=== PATIENT | male | born 1995 | race Two or more races ===

== ENCOUNTER 2024-11-01 09:22 | Inpatient (IN) | payer BC ==
[2024-10-30 08:19] LABS: Urine Protein, UAD Negative (Negative)
[2024-10-30 08:27] LABS: Hematocrit 42.8 % (41.0-53.0); Hemoglobin 14.6 g/dL (13.5-17.5); Mean Corpuscular Hemoglobin 29.5 pg (28.0-32.0); Mean Corpuscular Volume 86.4 fL (80.0-100.0); Nucleated Red Blood Cells % 0.0 %
[2024-10-30 08:46] LABS: INR 1.04 (0.9-1.15); Partial Thromboplastin Time 30.1 SEC (24.5-34.5); Prothrombin Time 11.0 sec (9.3-11.8)
[2024-10-30 08:58] LABS: Alanine Aminotransferase 20 U/L (7-40); Albumin 4.8 g/dL (3.2-4.8); Alkaline Phosphatase 67 U/L (46-116); Anion Gap 7 (5-15); BUN/Creatinine Ratio 23.6 (10.0-20.0); Bilirubin, Total 0.5 mg/dL (0.2-1.0); Blood Urea Nitrogen 21 mg/dL (9-23); Carbon Dioxide 28 mmol/L (20-31); Chloride 106 mmol/L (98-107); Glucose 91 mg/dL (74-106); Potassium 4.1 mmol/L (3.5-5.1); Sodium 141 mmol/L (136-145); Total Protein 7.6 g/dL (5.7-8.2)
[2024-10-30 09:08] LABS: Calcium 10.5 mg/dL (8.7-10.4)
[~2024-11-01] VITALS: Ht 177.8 cm; Wt 73.8 kg
[~2024-11-01 09:22] MED LIST: LEVO137T3 PO; MULT-1018 OR; OMEG1CAP PO; [UNRECOGNIZED DRUG - CODE] PO
[2024-11-01] MEDS ORDERED: ROCURONIUM 10MG/ML 10ML VIAL IV ONE (11:19)
[2024-11-01] MEDS ORDERED: SUGAMMADEX 200mg/2ml Vial (100MG/ML) IV ONE (11:19)
[2024-11-01] MEDS ORDERED: GLYCOPYRROLATE 0.2 MG/ML 1ML VIAL ONE (11:19)
[2024-11-01] MEDS: ceFAZolin 2 GM/D5W50ml 50 ML IV ONE (11:19)
[2024-11-01] MEDS ORDERED: PROPOFOL 10 MG/ML 20 ML IV ONE (11:19)
[2024-11-01] MEDS ORDERED: ONDANSETRON HCL 4 MG/2 ML VIAL ONE (11:19)
[2024-11-01] MEDS ORDERED: MIDAZOLAM HCL 2MG/2ML 2ml VIAL (1mg/ml) ONE (11:19)
[2024-11-01] MEDS ORDERED: HYDROmorphone HCL 2 MG/ML VL/or syr ONE (11:19)
[2024-11-01] MEDS ORDERED: LIDOCAINE 2% (LOCAL ANESTH.) PF 5ml SDV ONE (11:19)
[2024-11-01] MEDS ORDERED: fentaNYL CITRATE 100 MCG/2 ML VL ONE (11:19)
[2024-11-01] MEDS: LIDOCAINE W/ EPINEPHRINE 1% 20ML VIAL ONE (11:58)
[2024-11-01] MEDS: BUPIVACAINE 0.5% P/F INJ 10 ML VIAL ONE (11:58)
[2024-11-01] MEDS ORDERED: D5W/SOD CHL 0.45%/KCL 20MEQ 1,000 ML IV SCH (12:45)
[2024-11-01] MEDS ORDERED: ONDANSETRON HCL 4 MG/2 ML VIAL IV PRN (12:45)
[2024-11-01] MEDS ORDERED: HYDROmorphone HCL 2 MG/ML VL/or syr IV PRN (12:45)
[2024-11-01 12:56] VITALS: RESP 16; O2SAT 98
--- NOTE | 2024-11-01 13:01 | DVHOP ---
DATE OF SURGERY: 11/01/2024 PREOPERATIVE DIAGNOSES: * Cholelithiasis. * Chronic cholecystitis. * Gallbladder polyps. POSTOPERATIVE DIAGNOSES: * Cholelithiasis. * Chronic cholecystitis. * Gallbladder polyps. SURGEON: Jayme Kee MD [employer] SUPERVISOR: Kirill Tillman NP ANESTHESIA: General endotracheal. ANESTHESIOLOGIST: Dr. Villatoro. PROCEDURES: * Laparoscopy. * Laparoscopic cholecystectomy. DESCRIPTION OF PROCEDURE: Under general endotracheal anesthesia with the patient's skin prepped and draped, a supraumbilical incision was made and Veress needle inserted by the hanging drop technique in order to establish pneumoperitoneum to 15 mmHg pressure by insufflation with carbon dioxide. With the abdomen fully distended, the needle was removed and replaced with a 5 mm trocar port through which a 0-degree viewing laparoscope was inserted and under direct vision, a 5 mm port inserted through the right anterior axillary line at the level of the umbilicus and a 10 mm port inserted through the subxiphoid midline skin. Instrumentation was introduced and laparoscopy was performed. It revealed no obvious unexpected pathology. The gallbladder, however, was covered with a very tenacious veil of fibrous tissue and was obscured from vision. This fibrous tissue had to be stripped meticulously by blunt dissection, at which point the gallbladder wall became visible. The gallbladder was placed on tension. The cystic duct and cystic artery were identified, circumferentially dissected, skeletonized, and traced into the hepatocystic triangle just to minimize the potential for inadvertent injury to the common bile duct. Subsequently, the cystic duct and cystic artery were divided between metallic clips applied close to the gallbladder, again trying to avoid injury to the common bile duct. Following division of the cystic duct and cystic artery, the gallbladder was resected from its liver bed by electrocautery and traction. The fully mobilized gallbladder was removed by placement in a specimen extraction bag introduced through the 10 mm port site and withdrawn through this site. The right upper quadrant was thoroughly irrigated. Irrigant was aspirated. Hemostasis was meticulously inspected and found to be complete. At the termination of the procedure, there was no evidence of bleeding from either the gallbladder bed or from the port sites. Instrumentation was withdrawn. Pneumoperitoneum was evacuated. The fascia defect was closed using 0 Vicryl. The wound was approximated using Monocryl sutures, Dermabond glue, and Steri-Strips. The patient remained stable throughout the procedure, left the operating room following an accurate needle and sponge count. His was thoroughly informed by phone at [phone]. MD MILLIE Calix/GINNY TID: [id number] RECEIPT: [id number]
[2024-11-01] MEDS: ACETAMINOPHEN IV 100 ML IV ONE (13:27)
[2024-11-01] MEDS ORDERED: ACETAMINOPHEN IV 1000 MG/100ML (10MG/ML) IV PRN (13:30)
[2024-11-01] MEDS: D5W/SOD CHL 0.45%/KCL 20MEQ 1,000 ML IV SCH (14:12)
--- NOTE | 2024-11-01 14:41 | DVHHP2 ---
Review of Systems Allergies: Coded Allergies: NSAIDs (Unverified Allergy, Unknown, 10/29/24) Medications Current Medications Medications Dose Ordered Sig/Lisa Route Start Time Stop Time Status Last Admin Dose Admin Pantoprazole Sodium 40 mg DAILY IV 11/02/24 10:00 Ondansetron HCl 4 mg Q4HPRN PRN IV 11/01/24 12:45 Hydromorphone HCl 0.5 mg Q2HPRN PRN IV 11/01/24 12:45 Cefazolin Sodium 50 ml @ 100 mls/hr Q8HR IV 11/01/24 14:00 Metronidazole 100 ml @ 100 mls/hr Q8HR IV 11/01/24 14:00 11/01/24 14:11 100 MLS/HR Potassium Chloride/Dextrose/ Sod Cl 1,000 ml @ 120 mls/hr Q8H20M IV 11/01/24 20:00 11/01/24 14:12 120 MLS/HR Exam Vital Signs Vital Signs Date Time Temp Pulse Resp B/P (MAP) Pulse Ox O2 Delivery O2 Flow Rate FiO2 11/01/24 14:10 95 17 134/53 (80) 98 11/01/24 13:07 Room Air 98 11/01/24 12:56 97.8 97.8 11/01/24 12:56 10.0 Labs/Xrays Labs Test 10/30/24 07:55 Range/Units White Blood Count 6.0 4.4-10.8 10^3/uL Red Blood Count 4.95 4.5-5.90 10^6/uL Hemoglobin 14.6 13.5-17.5 g/dL Hematocrit 42.8 41.0-53.0 % Mean Corpuscular Volume 86.4 80.0-100.0 fL Mean Corpuscular Hemoglobin 29.5 28.0-32.0 pg Mean Corpuscular Hemoglobin Concent 34.2 32.0-36.0 g/dL Red Cell Distribution Width 13.3 11.8-14.3 % Platelet Count 213 140-450 10^3/uL Mean Platelet Volume 8.0 6.9-10.8 fL Neutrophils (%) (Auto) 47.4 37.0-80.0 % Lymphocytes (%) (Auto) 36.2 10.0-50.0 % Monocytes (%) (Auto) 12.2 H 0.0-12.0 % Eosinophils (%) (Auto) 3.0 0.0-7.0 % Basophils (%) (Auto) 1.2 0.0-2.0 % Neutrophils # (Auto) 2.9 1.6-8.6 10 ^3/uL Lymphocytes # (Auto) 2.2 0.4-5.4 10 ^3/uL Monocytes # (Auto) 0.7 0-1.3 10 ^3/uL Eosinophils # (Auto) 0.2 0-0.8 10 ^3/uL Basophils # (Auto) 0.1 0-0.2 10 ^3/uL Nucleated Red Blood Cells 0.0 % Prothrombin Time 11.0 9.3-11.8 sec Prothrombin Time INR 1.04 0.9-1.15 Activated Partial Thromboplast Time 30.1 24.5-34.5 SEC Urine Color Light-yellow Yellow Urine Clarity Clear Clear Urine pH 5.5 5.0-9.0 Urine Specific [place] 1.016 1.001-1.035 Urine Protein Negative Negative Urine Ketones Negative Negative Urine Blood Negative Negative /uL Urine Nitrite Negative Negative Urine Bilirubin Negative Negative Urine Urobilinogen Normal Negative mg/dL Urine Leukocyte Esterase Negative Negative /uL Urine RBC 1 0 - 3 /hpf Urine Microscopic WBC < 1 0-3 /HPF Urine Squamous Epithelial Cells None seen <5 /hpf Urine Bacteria None seen None Seen /hpf Urine Glucose Normal Normal mg/dL Sodium Level 141 136-145 mmol/L Potassium Level 4.1 3.5-5.1 mmol/L Chloride Level 106 98-107 mmol/L Carbon Dioxide Level 28 20-31 mmol/L Anion Gap 7 5-15 Blood Urea Nitrogen 21 9-23 mg/dL Creatinine 0.89 0.700-1.30 mg/dL Glomerular Filtration Rate Calc 118 >90 mL/min BUN/Creatinine Ratio 23.6 H 10.0-20.0 Serum Glucose 91 74-106 mg/dL Calcium Level 10.5 H 8.7-10.4 mg/dL Total Bilirubin 0.5 0.2-1.0 mg/dL Aspartate Amino Transferase (AST) 23 13-40 U/L Alanine Aminotransferase (ALT) 20 7-40 U/L Alkaline Phosphatase 67 46-116 U/L Total Protein 7.6 5.7-8.2 g/dL Albumin 4.8 3.2-4.8 g/dL SEPSIS Sepsis Screen Physician Orders To Pacu For Recovery (11/01/24 12:37) Oxygen Via Cool Mist Mask (11/01/24 12:37) Incentive Spirometry Q 1hr (11/01/24 12:37) Abdominal Binder (11/01/24 12:37) Sequential Compression Device (11/01/24 12:37) Clear Liq Diet (11/01/24 Lunch) Bilirubin, Total (11/02/24 04:00) Page Hospitalist For Admission (11/01/24 12:37) Pantoprazole (Protonix) (11/02/24 10:00) Ondansetron Hcl (Zofran) (11/01/24 12:45) Hydromorphone Injection (Dilaudid Inject (11/01/24 12:45) Cefazolin 1gm/50ml (Ancef) (11/01/24 14:00) Metronidazole 500mg/100ml (Flagyl 500mg/ (11/01/24 14:00) Ambulate Every 4hours Q4H (11/01/24 12:37) D5w/Sod Chl 0.45%/Kcl 20meq (11/01/24 20:00) Admit (11/01/24 14:38) Acetaminophen/Codeine Tablet (Tylenol W/ (11/01/24 14:45) Complete Blood Count (11/02/24 06:00) Comprehensive Metabolic Panel (11/02/24 06:00) Vital Signs Date Time Temp Pulse Resp B/P (MAP) Pulse Ox O2 Delivery O2 Flow Rate FiO2 11/01/24 14:10 95 17 134/53 (80) 98 11/01/24 13:40 102 19 132/64 (86) 98 11/01/24 13:25 105 21 123/63 (83) 100 11/01/24 13:10 95 20 130/68 (88) 99 11/01/24 13:07 Room Air 98 11/01/24 13:05 115 15 140/81 (100) 98 11/01/24 13:00 103 14 127/80 (96) 99 11/01/24 12:56 97.8 108 16 137/81 (99) 98 97.8 11/01/24 12:56 16 98 Mask 10.0 11/01/24 12:56 Mask 10.0 98 11/01/24 09:44 97.7 71 20 112/71 (45) 94 97.7 Medications Medications Dose Ordered Sig/Lisa Route Start Time Stop Time Status Last Admin Dose Admin Acetaminophen 100 ml @ ud STK-MED ONCE IV 11/01/24 13:09 11/01/24 13:08 DC 11/01/24 13:27 100 MLS/HR Bupivacaine HCl 20 ml STK-MED ONCE .ROUTE 11/01/24 10:13 11/01/24 10:12 DC 11/01/24 11:58 6 ML Cefazolin Sodium/ Dextrose 50 ml @ ud STK-MED ONCE IV 11/01/24 09:45 11/01/24 09:43 DC 11/01/24 11:19 Lidocaine/ Epinephrine 20 ml STK-MED ONCE .ROUTE 11/01/24 10:14 11/01/24 10:12 DC 11/01/24 11:58 6 ML Metronidazole 100 ml @ 100 mls/hr Q8HR IV 11/01/24 14:00 11/01/24 14:11 100 MLS/HR Potassium Chloride/Dextrose/ Sod Cl 1,000 ml @ 120 mls/hr Q8H20M IV 11/01/24 20:00 11/01/24 14:12 120 MLS/HR Assessment/Plan Assessment/Plan see dictated note Plan discussed with: Patient My Orders Orders - LUCINDA HARRIS MD Procedure Category Date Status Time Admit ADMIT 11/01/24 Verified 14:38 Acetaminophen/Codeine PHA 11/01/24 Verified Tablet (Tylenol W/ 14:45 Complete Blood Count LAB 11/02/24 Verified 06:00 Comprehensive LAB 11/02/24 Verified Metabolic Panel 06:00 Date of Service: Nov 01, 2024 Billing Provider: LUCINDA HARRIS MD Common Visit Codes: [id number] INP/OBS CARE (HIGH) LUCINDA HARRIS MD Nov 01, 2024 14:41
[2024-11-01] MEDS ORDERED: ACETAMINOPHEN/CODEINE#3 (300/30mg) TAB PO PRN (14:45)
--- NOTE | 2024-11-01 15:13 | DVHHP ---
ADMIT DATE: 11/01/2024 HISTORY OF PRESENT ILLNESS: The patient is a 29-year-old gentleman who was admitted after he underwent laparoscopic cholecystectomy for gallbladder polyp that has been increasing in size. The patient at this time denies any significant pain. No chest pain, no shortness of breath, no nausea or vomiting. REVIEW OF SYSTEMS: Review of rest of the systems otherwise currently negative. PAST MEDICAL HISTORY: He has a history of hypothyroidism. MEDICATIONS: He takes levothyroxine 135 mcg daily. ALLERGIES: NONSTEROIDALS. SOCIAL HISTORY: Denies smoking or alcohol. FAMILY HISTORY: Negative. PHYSICAL EXAMINATION: GENERAL: The patient is awake and alert. VITAL SIGNS: Temperature of 97.8, pulse of 95 per minute, blood pressure 130/68. SHEENT: Unremarkable. NECK: No JVD. No pedal edema. LUNGS: Equal bilaterally. No added sounds. CARDIOVASCULAR: S1 and S2 are regular without murmurs. ABDOMEN: Soft. There is no organomegaly. Bowel sounds are hypoactive. NEUROLOGIC: Nonfocal. MUSCULOSKELETAL: Normal. ASSESSMENT AND PLAN: * Hypothyroidism, for which he will continue on levothyroxine. * Status post laparoscopic cholecystectomy for gallbladder polyp for which he will be placed on IV fluids along with pain medications. MD JENNIFER Hartman/EKT/LUCIO TID: [id number] RECEIPT: [id number]
--- NOTE | 2024-11-01 15:31 | DVHPN2 ---
Progress Note Date Seen: Nov 01, 2024 Medical Necessity Reason Pt with a Central, PICC or Fol: No Objective vital signs Vital Sign Date Time Temp Pulse Resp B/P (MAP) Pulse Ox O2 Delivery O2 Flow Rate FiO2 11/01/24 14:10 95 17 134/53 (80) 98 11/01/24 13:07 Room Air 98 11/01/24 12:56 97.8 97.8 11/01/24 12:56 10.0 medications Current Medications Medications Dose Ordered Sig/Lisa Route Start Time Stop Time Status Last Admin Dose Admin Pantoprazole Sodium 40 mg DAILY IV 11/02/24 10:00 Ondansetron HCl 4 mg Q4HPRN PRN IV 11/01/24 12:45 Hydromorphone HCl 0.5 mg Q2HPRN PRN IV 11/01/24 12:45 Cefazolin Sodium 50 ml @ 100 mls/hr Q8HR IV 11/01/24 14:00 Metronidazole 100 ml @ 100 mls/hr Q8HR IV 11/01/24 14:00 11/01/24 14:11 100 MLS/HR Potassium Chloride/Dextrose/ Sod Cl 1,000 ml @ 120 mls/hr Q8H20M IV 11/01/24 20:00 11/01/24 14:12 120 MLS/HR Acetaminophen/ Codeine Phosphate 1 tab Q4HP PRN PO 11/01/24 14:45 UNV Levothyroxine Sodium 137 mcg QAM@0600 PO 11/02/24 06:00 UNV laboratory and microbiology Laboratory Tests 10/30/24 07:55 Test 10/30/24 07:55 Range/Units Serum Glucose 91 74-106 mg/dL Problem List/Assessment/Plan Problem List/Assessment/Plan 11/01/24patient and his in recovery room, I explained the operation details that his gallbladder was affected by multiple dense adhesions and that most likely from the appearance his gallbladder was a source symptoms. Also explained that there was an enlarged lymph node adjacent to the cystic artery(triangle of [place] lymph node) which we removed for biopsy but which most likely si a reactive node. Plan discussed with: Patient, Spouse MONICA HILLMAN MD Nov 01, 2024 15:31
[2024-11-01 15:52] VITALS: PULSE 98; RESP 18; O2SAT 100
[2024-11-01 16:40] VITALS: BP 106/60; PULSE 100; RESP 18; TEMP 98.8; O2SAT 98
[2024-11-01] MEDS: ceFAZolin 1GM/50ML 50 ML IV SCH (16:49)
[2024-11-01] MEDS: diphenhdrAMINE HCL 25 MG CAP PO PRN (17:28)
[2024-11-01 20:00] VITALS: PULSE 78; RESP 17; O2SAT 99
[2024-11-01 21:00] VITALS: BP 108/64; PULSE 78; RESP 17; TEMP 97; O2SAT 99
[2024-11-02 01:00] VITALS: BP 100/51; PULSE 82; RESP 17; TEMP 97.4; O2SAT 100
[2024-11-02 05:00] VITALS: BP 98/55; PULSE 69; RESP 17; TEMP 97.4; O2SAT 98
[2024-11-02] MEDS: LEVOTHYROXINE SODIUM 25 MCG TAB PO SCH (05:52)
[2024-11-02] MEDS: LEVOTHYROXINE SODIUM 112 MCG TAB PO SCH (05:52)
[2024-11-02 06:21] LABS: Alanine Aminotransferase 30 U/L (7-40); Alkaline Phosphatase 47 U/L (46-116); Anion Gap 9 (5-15); BUN/Creatinine Ratio 12.7 (10.0-20.0); Blood Urea Nitrogen 10 mg/dL (9-23); Calcium 9.0 mg/dL (8.7-10.4); Carbon Dioxide 27 mmol/L (20-31); Chloride 106 mmol/L (98-107); Potassium 3.7 mmol/L (3.5-5.1); Sodium 142 mmol/L (136-145); Total Protein 6.2 g/dL (5.7-8.2)
[2024-11-02 06:22] LABS: Bilirubin, Total 0.5 mg/dL (0.2-1.0)
[2024-11-02 06:24] LABS: Hematocrit 38.0 % (41.0-53.0); Hemoglobin 13.0 g/dL (13.5-17.5); Mean Corpuscular Hemoglobin 29.2 pg (28.0-32.0); Mean Corpuscular Volume 85.4 fL (80.0-100.0); Nucleated Red Blood Cells % 0.1 %
[2024-11-02 06:29] LABS: Albumin 3.9 g/dL (3.2-4.8)
[2024-11-02 06:39] LABS: Glucose 114 mg/dL (74-106)
[2024-11-02] MEDS ORDERED: AUG875T PO ×2 (08:17)
[2024-11-02] MEDS ORDERED: METR-344 PO ×2 (08:17)
[2024-11-02 08:30] VITALS: PULSE 70; RESP 17; O2SAT 100
[2024-11-02 09:00] VITALS: BP 110/76; PULSE 69; RESP 20; TEMP 97.6; O2SAT 100
--- NOTE | 2024-11-02 09:22 | DVHPN2 ---
Progress Note Date Seen: Nov 02, 2024 Medical Necessity Reason Pt with a Central, PICC or Fol: No Objective vital signs Vital Sign Date Time Temp Pulse Resp B/P (MAP) Pulse Ox O2 Delivery O2 Flow Rate FiO2 11/02/24 05:00 97.4 69 17 98/55 (69) 98 97.4 11/01/24 20:00 Room Air* 0 21 Total Intake and Output 11/01/24 11/01/24 11/02/24 15:00 23:00 07:00 Intake Total 150 ml 270 ml 2554 ml Balance 150 ml 270 ml 2554 ml medications Current Medications Medications Dose Ordered Sig/Lisa Route Start Time Stop Time Status Last Admin Dose Admin Pantoprazole Sodium 40 mg DAILY IV 11/02/24 10:00 Ondansetron HCl 4 mg Q4HPRN PRN IV 11/01/24 12:45 Hydromorphone HCl 0.5 mg Q2HPRN PRN IV 11/01/24 12:45 Cefazolin Sodium 50 ml @ 100 mls/hr Q8HR IV 11/01/24 14:00 11/02/24 05:52 100 MLS/HR Metronidazole 100 ml @ 100 mls/hr Q8HR IV 11/01/24 14:00 11/02/24 07:07 100 MLS/HR Potassium Chloride/Dextrose/ Sod Cl 1,000 ml @ 120 mls/hr Q8H20M IV 11/01/24 20:00 11/02/24 03:56 120 MLS/HR Acetaminophen/ Codeine Phosphate 1 tab Q4HP PRN PO 11/01/24 14:45 Levothyroxine Sodium 112 mcg QAM@0600 PO 11/02/24 06:00 11/02/24 05:52 112 MCG Diphenhydramine HCl 25 mg Q6HP PRN PO 11/01/24 17:00 11/01/24 17:28 25 MG Levothyroxine Sodium 25 mcg QAM@0600 PO 11/02/24 06:00 11/02/24 05:52 25 MCG laboratory and microbiology Laboratory Tests 11/02/24 05:08 Test 11/02/24 05:08 Range/Units Serum Glucose 114 H 74-106 mg/dL Problem List/Assessment/Plan Problem List/Assessment/Plan 11/01/24patient and his in recovery room, I explained the operation details that his gallbladder was affected by multiple dense adhesions and that most likely from the appearance his gallbladder was a source symptoms. Also explained that there was an enlarged lymph node adjacent to the cystic artery(triangle of [place] lymph node) which we removed for biopsy but which most likely si a reactive node. 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 he is cleared for discharge to see me in two weeks, He may resume his work duties as tolerated. , , Plan discussed with: Patient MONICA HILLMAN MD Nov 02, 2024 09:22
[2024-11-02] MEDS: PANTOPRAZOLE 40 MG/10 ML VIAL INJ IV SCH (10:51)
--- NOTE | 2024-11-02 11:21 | DVHPN2 ---
Subjective Feeling better this morning; tolerated regular diet; passing gas; minimal abdominal pain Reviewed: Care Plan, H&P, Labs, Medications, Previous Orders, Radiology, Other (Consultation) Changes from previous H/P or p: Changes Objective Vitals Vital Signs Date Time Temp Pulse Resp B/P (MAP) Pulse Ox O2 Delivery O2 Flow Rate FiO2 11/02/24 09:00 97.6 69 20 110/76 (87) 100 97.6 11/02/24 08:30 Room Air* 0 21 Intake/Output Intake and Output 11/02/24 07:00 Intake Total 2974 ml Balance 2974 ml Intake Oral 1454 ml IV Total 1520 ml # Voids 2 General Appearance: Alert, Oriented X3, Cooperative, No acute distress HEENT: Atraumatic Lungs: Clear to auscultation, Normal air movement Cardiovascular: Regular rate, Normal S1, Normal S2 Abdomen: Normal bowel sounds, Soft, Other (Mild tenderness at surgical wounds; clean surgical dressings without discharge/bleeding/redness) Extremities: No edema Neuro: Normal speech, Cranial nerves 3-12 NL Psych/Mental Status: Mental status NL, Mood NL Medications Current Medications Medications Dose Ordered Sig/Lisa Route Start Time Stop Time Status Last Admin Dose Admin Pantoprazole Sodium 40 mg DAILY IV 11/02/24 10:00 11/02/24 10:51 40 MG Ondansetron HCl 4 mg Q4HPRN PRN IV 11/01/24 12:45 Hydromorphone HCl 0.5 mg Q2HPRN PRN IV 11/01/24 12:45 Cefazolin Sodium 50 ml @ 100 mls/hr Q8HR IV 11/01/24 14:00 11/02/24 05:52 100 MLS/HR Metronidazole 100 ml @ 100 mls/hr Q8HR IV 11/01/24 14:00 11/02/24 07:07 100 MLS/HR Potassium Chloride/Dextrose/ Sod Cl 1,000 ml @ 120 mls/hr Q8H20M IV 11/01/24 20:00 11/02/24 03:56 120 MLS/HR Acetaminophen/ Codeine Phosphate 1 tab Q4HP PRN PO 11/01/24 14:45 Levothyroxine Sodium 112 mcg QAM@0600 PO 11/02/24 06:00 11/02/24 05:52 112 MCG Diphenhydramine HCl 25 mg Q6HP PRN PO 11/01/24 17:00 11/01/24 17:28 25 MG Levothyroxine Sodium 25 mcg QAM@0600 PO 11/02/24 06:00 11/02/24 05:52 25 MCG Laboratory Results Laboratory Tests 11/02/24 05:08 Chemistry Test 11/02/24 05:08 Albumin 3.9 g/dL (3.2-4.8) Calcium Level 9.0 mg/dL (8.7-10.4) Total Protein 6.2 g/dL (5.7-8.2) LFT Test 11/02/24 05:08 Alanine Aminotransferase (ALT) 30 U/L (7-40) Alkaline Phosphatase 47 U/L (46-116) Aspartate Amino Transferase (AST) 35 U/L (13-40) Total Bilirubin 0.5 mg/dL (0.2-1.0) HgA1c, TSH Test 11/02/24 05:08 Thyroid Stimulating Hormone (TSH) 0.81 uIU/mL (0.55-4.78) Urinalysis Test 10/30/24 07:55 Urine Color Light-yellow (Yellow) Urine Clarity Clear (Clear) Urine pH 5.5 (5.0-9.0) Urine Specific [place] 1.016 (1.001-1.035) Urine Protein Negative (Negative) Urine Ketones Negative (Negative) Urine Blood Negative /uL (Negative) Urine Nitrite Negative (Negative) Urine Bilirubin Negative (Negative) Urine Urobilinogen Normal mg/dL (Negative) Urine Leukocyte Esterase Negative /uL (Negative) Urine RBC 1 /hpf (0 - 3) Urine Microscopic WBC < 1 /HPF (0-3) Urine Squamous Epithelial Cells None seen /hpf (<5) Urine Bacteria None seen /hpf (None Seen) Urine Glucose Normal mg/dL (Normal) Labs and/or images reviewed: Labs reviewed by me, Image(s) reviewed by me Assessment/Plan Assessment/Plan A 29 year-old male patient; with past medical history of hypothyroidism, anxiety/depression, and cholelithiasis with gallbladder polyps; was admitted after laparoscopic cholecystectomy. #Cholelithiasis, chronic cholecystitis, and gallbladder polyps status post laparoscopic cholecystectomy on November 01, 2024; cleared by General surgery for discharge; LFTs normal; switched IV antibiotics to oral antibiotics upon discharge; will follow up with General surgery in two weeks for pathology results; will follow up with Dr. Nuno on November 05, 2024 #Hypothyroidism; normal TSH; to continue home levothyroxine upon discharge; will follow up with Dr. Nuno on November 05, 2024 #Anxiety/depression; no suicidal thoughts/ideation/plan; to resume home psychiatric medications; will follow up with Dr. Nuno on November 05, 2024 #Normocytic anemia; will follow up with Dr. Nuno on November 05, 2024 Goals of care discussed with the patient and his for 20 minutes; full code. Late Entry. This medical document was created using an electronic medical record system with computerized dictation system. Although this document has been carefully reviewed, there might still be some phonetic and typographical errors. These areas are purely typographical due to imperfections of the software programs, and do not reflect any compromise in the patient's medical care. Plan discussed with: Patient, Spouse, Other (Nurse) My Orders Orders - ANSHU NUNO MD Procedure Category Date Status Time Code Status CODE 11/01/24 Transmitted 19:10 Regular Diet DIET 11/02/24 Transmitted Lunch Date of Service: Nov 02, 2024 Billing Provider: ANSHU NUNO MD Common Visit Codes: [id number] INP/OBS CARE(MOD) Secondary Visit Codes: [id number] CARE PLAN 30 MINUTES (20 minutes) ANSHU NUNO MD Nov 02, 2024 11:21
--- NOTE | 2024-11-02 11:44 | DVHDS2 ---
Discharge Summary Date of Admission Nov 01, 2024 at 14:38 Date of Discharge: Nov 02, 2024 Admitting Diagnosis Status post laparoscopic cholecystectomy for cholelithiasis and gallbladder polyps Wounds: Laparoscopic cholecystectomy surgical wounds Labs/Diagnostic Data: Laboratory Results Test 11/02/24 05:08 10/30/24 07:55 White Blood Count 9.9 10^3/uL (4.4-10.8) Red Blood Count 4.45 10^6/uL (4.5-5.90) Hemoglobin 13.0 g/dL (13.5-17.5) Hematocrit 38.0 % (41.0-53.0) Mean Corpuscular Volume 85.4 fL (80.0-100.0) Mean Corpuscular Hemoglobin 29.2 pg (28.0-32.0) Mean Corpuscular Hemoglobin Concent 34.2 g/dL (32.0-36.0) Red Cell Distribution Width 12.7 % (11.8-14.3) Platelet Count 197 10^3/uL (140-450) Mean Platelet Volume 8.3 fL (6.9-10.8) Neutrophils (%) (Auto) 70.7 % (37.0-80.0) Lymphocytes (%) (Auto) 18.4 % (10.0-50.0) Monocytes (%) (Auto) 10.6 % (0.0-12.0) Eosinophils (%) (Auto) 0.1 % (0.0-7.0) Basophils (%) (Auto) 0.2 % (0.0-2.0) Neutrophils # (Auto) 7.0 10 ^3/uL (1.6-8.6) Lymphocytes # (Auto) 1.8 10 ^3/uL (0.4-5.4) Monocytes # (Auto) 1.0 10 ^3/uL (0-1.3) Eosinophils # (Auto) 0 10 ^3/uL (0-0.8) Basophils # (Auto) 0 10 ^3/uL (0-0.2) Nucleated Red Blood Cells 0.1 % Sodium Level 142 mmol/L (136-145) Potassium Level 3.7 mmol/L (3.5-5.1) Chloride Level 106 mmol/L (98-107) Carbon Dioxide Level 27 mmol/L (20-31) Anion Gap 9 (5-15) Blood Urea Nitrogen 10 mg/dL (9-23) Creatinine 0.79 mg/dL (0.700-1.30) Glomerular Filtration Rate Calc 123 mL/min (>90) BUN/Creatinine Ratio 12.7 (10.0-20.0) Serum Glucose 114 mg/dL (74-106) Calcium Level 9.0 mg/dL (8.7-10.4) Total Bilirubin 0.5 mg/dL (0.2-1.0) Aspartate Amino Transferase (AST) 35 U/L (13-40) Alanine Aminotransferase (ALT) 30 U/L (7-40) Alkaline Phosphatase 47 U/L (46-116) Total Protein 6.2 g/dL (5.7-8.2) Albumin 3.9 g/dL (3.2-4.8) Thyroid Stimulating Hormone (TSH) 0.81 uIU/mL (0.55-4.78) Prothrombin Time 11.0 sec (9.3-11.8) Prothrombin Time INR 1.04 (0.9-1.15) Activated Partial Thromboplast Time 30.1 SEC (24.5-34.5) Urine Color Light-yellow (Yellow) Urine Clarity Clear (Clear) Urine pH 5.5 (5.0-9.0) Urine Specific Deposit 1.016 (1.001-1.035) Urine Protein Negative (Negative) Urine Ketones Negative (Negative) Urine Blood Negative /uL (Negative) Urine Nitrite Negative (Negative) Urine Bilirubin Negative (Negative) Urine Urobilinogen Normal mg/dL (Negative) Urine Leukocyte Esterase Negative /uL (Negative) Urine RBC 1 /hpf (0 - 3) Urine Microscopic WBC < 1 /HPF (0-3) Urine Squamous Epithelial Cells None seen /hpf (<5) Urine Bacteria None seen /hpf (None Seen) Urine Glucose Normal mg/dL (Normal) Other Laboratory Tests 11/02/24 05:08 Brief Hx & Hospital Course: A 29 year-old male patient; with past medical history of hypothyroidism, anxiety/depression, and cholelithiasis with gallbladder polyps; was admitted after laparoscopic cholecystectomy. Details as below: #Cholelithiasis, chronic cholecystitis, and gallbladder polyps status post laparoscopic cholecystectomy on November 01, 2024; cleared by General surgery for discharge; LFTs back to normal; switched IV antibiotics to oral antibiotics upon discharge; will follow up with General surgery in two weeks for pathology results; will follow up with Dr. Nuno on November 05, 2024; patient declined controlled-substance pain medication upon discharge #Hypothyroidism; normal TSH; to continue home levothyroxine upon discharge; will follow up with Dr. Nuno on November 05, 2024 #Anxiety/depression; no suicidal thoughts/ideation/plan; to resume home psychiatric medications; will follow up with Dr. Nuno on November 05, 2024 #Normocytic anemia; will follow up with Dr. Nuno on November 05, 2024 Physical examination documented in the progress note on the day of discharge. Late Entry. This medical document was created using an electronic medical record system with computerized dictation system. Although this document has been carefully reviewed, there might still be some phonetic and typographical errors. These areas are purely typographical due to imperfections of the software programs, and do not reflect any compromise in the patient's medical care. Consults/Reason for consult General surgery for cholelithiasis and gallbladder polyps Operations or Procedures Laparoscopic cholecystectomy on November 01, 2024 Condition at Discharge: Stable Final Diagnosis/Problems List #Cholelithiasis, Chronic cholecystitis, and gallbladder polyps status post laparoscopic cholecystectomy #Hypothyroidism #Anxiety/Depression #Normocytic anemia Discharge Disposition: Home Discharge Instruct/Medications Diet: Regular Activity: No Restrictions, As Tolerated Follow Up/Referral: Dr. Nuno on Tuesday November 05, 2024 in [facility]; general surgery in two weeks Medications: Discharged with Augmentin and Flagyl for seven days; to stop home colchicine; to continue home levothyroxine; to continue home psychiatric medications Scheduled Amoxicillin & Pot Clavulanate (Augmentin Tablet), 875 MG PO BID Levothyroxine Sodium (Levothyroxine Sodium), 137 MCG PO DAILY, (Reported) Metronidazole (Flagyl), 500 MG PO TID Multiple Vitamin (Multivitamins), 1 TAB OR DAILY, (Reported) Hemphill 3 Fatty Acids-Evening Pr (Retaine Flax), 1 CAP PO DAILY, (Reported) Discontinued Medications Colchicine (Lodoco), 0.5 MG PO BID, (Reported) Discharge Statement: "Patient was advised to return to the ER or call 911 if any headaches, dizziness, shortness of breath, chest pain, abdominal pain, bleeding, fevers, or worsening of medical condition. Patient was counseled about treatment plan, medications, possible side effects, patientverbalized understanding. All questions were answered to the best of my ability. This discharge took greater then 30 minutes in planning, reviewing documentation, counseling the patient, and discussing with other team members." ASSESSMENT ASSESSMENT Assessment Date of Service: Nov 02, 2024 Billing Provider: ANSHU NUNO MD Common Visit Codes: 70334-DKQ/OBS DISCH DAY >30min ANSHU NUNO MD Nov 02, 2024 11:44
[2024-11-02 12:19] VITALS: BP 125/51; PULSE 82; RESP 18; TEMP 36.4; O2SAT 99
[2024-11-02 13:01] VITALS: BP 125/51; PULSE 82; RESP 18; TEMP 98.4; O2SAT 99
== END 2024-11-02 13:03 | disposition home or self-care (01) | DRG 419 ==
LOC: SUR 09:22 → OVERFLOW 14:38 → CENTRAL 15:30
PROVIDERS: ADMIT Internal Medicine; ATTEND Internal Medicine
PROC: 0FT44ZZ Resection of Gallbladder, Percutaneous Endoscopic Approach (ICD-10-PCS; principal; 2024-11-01 11:19)
DX: K80.10 Calculus of gallbladder with chronic cholecystitis without obstruction (principal); E03.9 Hypothyroidism, unspecified; D64.9 Anemia, unspecified; F41.9 Anxiety disorder, unspecified; R59.9 Enlarged lymph nodes, unspecified; K82.8 Other specified diseases of gallbladder; Z79.890 Hormone replacement therapy; Z88.8 Allergy status to other drugs, medicaments and biological substances
CPT/HCPCS: 36415; 80053; 81001; 84443; 85025; 85610; 85730; 86850; 86900; 86901; G0378; J0131; J1100; J2003; J2250; J2405; J2470; J2704; J3490

== ENCOUNTER 2024-11-05 10:50 | Outpatient (CLI) | payer BC ==
[~2024-11-05 10:50] MED LIST changes: +AUG875T PO; +METR-344 PO
[2024-11-05 12:31] LABS: Hematocrit 43.5 % (41.0-53.0); Hemoglobin 14.9 g/dL (13.5-17.5); Mean Corpuscular Hemoglobin 29.4 pg (28.0-32.0); Mean Corpuscular Volume 85.9 fL (80.0-100.0); Nucleated Red Blood Cells % 0.1 %
[2024-11-05 12:48] LABS: Alanine Aminotransferase 38 U/L (7-40); Albumin 4.7 g/dL (3.2-4.8); Alkaline Phosphatase 58 U/L (46-116); Anion Gap 5 (5-15); BUN/Creatinine Ratio 18.8 (10.0-20.0); Blood Urea Nitrogen 15 mg/dL (9-23); Calcium 9.7 mg/dL (8.7-10.4); Carbon Dioxide 29 mmol/L (20-31); Chloride 105 mmol/L (98-107); Glucose 89 mg/dL (74-106); Potassium 4.4 mmol/L (3.5-5.1); Sodium 139 mmol/L (136-145); Total Protein 7.5 g/dL (5.7-8.2)
[2024-11-05 12:49] LABS: Bilirubin, Total 0.4 mg/dL (0.2-1.0)
== END 2024-11-05 17:00 | disposition home or self-care (01) ==
LOC: LAB 10:50
PROVIDERS: ATTEND Internal Medicine
DX: K81.9 Cholecystitis, unspecified (principal); Z98.890 Other specified postprocedural states
CPT/HCPCS: 36415; 80053; 85025

== ENCOUNTER 2024-12-10 12:32 | Outpatient (CLI) | payer BC ==
[~2024-12-10 12:32] MED LIST changes: -[UNRECOGNIZED DRUG - CODE] PO
[2024-12-10 13:04] LABS: Hematocrit 43.6 % (41.0-53.0); Hemoglobin 14.9 g/dL (13.5-17.5); Mean Corpuscular Hemoglobin 29.3 pg (28.0-32.0); Mean Corpuscular Volume 86.1 fL (80.0-100.0); Nucleated Red Blood Cells % 0.3 %
[2024-12-10 13:25] LABS: Alanine Aminotransferase 25 U/L (7-40); Albumin 4.8 g/dL (3.2-4.8); Alkaline Phosphatase 58 U/L (46-116); Anion Gap 8 (5-15); BUN/Creatinine Ratio 13.0 (10.0-20.0); Blood Urea Nitrogen 12 mg/dL (9-23); Calcium 9.8 mg/dL (8.7-10.4); Carbon Dioxide 30 mmol/L (20-31); Chloride 104 mmol/L (98-107); Cholesterol 147 mg/dL (< 200); Glucose 96 mg/dL (74-106); HDL Cholesterol 44 mg/dL (40-59); Potassium 4.5 mmol/L (3.5-5.1); Sodium 142 mmol/L (136-145); Total Protein 7.5 g/dL (5.7-8.2); Triglycerides 57 mg/dL (< 150)
[2024-12-10 13:26] LABS: Bilirubin, Total 0.6 mg/dL (0.2-1.0)
== END 2024-12-10 17:00 | disposition home or self-care (01) ==
LOC: LAB 12:32
PROVIDERS: ATTEND Internal Medicine Gastroenterology
DX: K29.00 Acute gastritis without bleeding (principal); R10.13 Epigastric pain; R19.4 Change in bowel habit; Z48.89 Encounter for other specified surgical aftercare
CPT/HCPCS: 36415; 80053; 80061; 83036; 85025; 85652; 86141; 86256; 86671

== ENCOUNTER 2025-01-07 12:22 | Outpatient (CLI) | payer BC ==
[2025-01-07 12:56] LABS: Hematocrit 43.0 % (41.0-53.0); Hemoglobin 14.6 g/dL (13.5-17.5); Mean Corpuscular Hemoglobin 29.0 pg (28.0-32.0); Mean Corpuscular Volume 85.4 fL (80.0-100.0); Nucleated Red Blood Cells % 0.0 %
[2025-01-07 13:30] LABS: Alanine Aminotransferase 30 U/L (7-40); Albumin 4.5 g/dL (3.2-4.8); Alkaline Phosphatase 63 U/L (46-116); Anion Gap 9 (5-15); BUN/Creatinine Ratio 14.3 (10.0-20.0); Blood Urea Nitrogen 12 mg/dL (9-23); Calcium 9.6 mg/dL (8.7-10.4); Carbon Dioxide 28 mmol/L (20-31); Chloride 105 mmol/L (98-107); Glucose 94 mg/dL (74-106); Potassium 4.3 mmol/L (3.5-5.1); Sodium 142 mmol/L (136-145)
[2025-01-07 13:31] LABS: Bilirubin, Total 0.6 mg/dL (0.2-1.0)
[2025-01-07 13:32] LABS: Total Protein 7.6 g/dL (5.7-8.2)
[2025-01-07 14:17] LABS: Uric Acid 6.0 mg/dL (3.7-9.2)
[2025-01-07 14:57] LABS: Wright Stain Ready for Review
[2025-01-08 09:07] LABS: EBV Ab VCA IgG Antibody >600.0 U/mL (0.0-17.9)
== END 2025-01-07 17:00 | disposition home or self-care (01) ==
LOC: LAB 12:22
PROVIDERS: ATTEND Internal Medicine
DX: R55 Syncope and collapse (principal)
CPT/HCPCS: 36415; 80053; 83036; 83615; 84550; 85025; 85652; 86141; 86308; 86644; 86645; 86664; 86735; 86762; 86765

== ENCOUNTER 2025-02-28 13:32 | Outpatient (CLI) | payer BC ==
[2025-02-28 13:45] LABS: Chloride 104 mmol/L (98-107); Potassium 4.3 mmol/L (3.5-5.1); Sodium 143 mmol/L (136-145)
[2025-02-28 13:46] LABS: Anion Gap 9 (5-15); Calcium 9.4 mg/dL (8.7-10.4); Carbon Dioxide 30 mmol/L (20-31)
[2025-02-28 13:51] LABS: BUN/Creatinine Ratio 15.5 (10.0-20.0); Blood Urea Nitrogen 15 mg/dL (9-23)
[2025-02-28 13:52] LABS: Glucose 70 mg/dL (74-106)
== END 2025-02-28 17:00 | disposition home or self-care (01) ==
LOC: LAB 13:32
PROVIDERS: ATTEND Internal Medicine
DX: Z01.812 Encounter for preprocedural laboratory examination (principal); R59.9 Enlarged lymph nodes, unspecified
CPT/HCPCS: 36415; 80048

== ENCOUNTER 2025-03-08 12:42 | Outpatient (CLI) | payer BC | END 2025-03-11 17:00 | disposition home or self-care (01) | LOC: LAB 12:42 | PROVIDERS: ATTEND Internal Medicine Gastroenterology | DX: A04.8 Other specified bacterial intestinal infections (principal) | CPT/HCPCS: 83013 ==

== ENCOUNTER 2025-04-05 08:24 | Outpatient (CLI) | payer BC ==
[2025-04-05 08:59] LABS: Hematocrit 43.2 % (41.0-53.0); Hemoglobin 14.6 g/dL (13.5-17.5); Mean Corpuscular Hemoglobin 28.5 pg (28.0-32.0); Mean Corpuscular Volume 84.2 fL (80.0-100.0); Nucleated Red Blood Cells % 0.1 %
[2025-04-05 09:12] LABS: Albumin 4.7 g/dL (3.2-4.8); Alkaline Phosphatase 77 U/L (46-116); Anion Gap 8 (5-15); BUN/Creatinine Ratio 11.5 (10.0-20.0); Blood Urea Nitrogen 12 mg/dL (9-23); Calcium 9.9 mg/dL (8.7-10.4); Carbon Dioxide 27 mmol/L (20-31); Chloride 105 mmol/L (98-107); Cholesterol 160 mg/dL (< 200); Glucose 97 mg/dL (74-106); HDL Cholesterol 42 mg/dL (40-59); Potassium 4.2 mmol/L (3.5-5.1); Sodium 140 mmol/L (136-145); Total Protein 8.1 g/dL (5.7-8.2); Triglycerides 68 mg/dL (< 150)
[2025-04-05 09:13] LABS: Bilirubin, Total 0.4 mg/dL (0.2-1.0)
[2025-04-05 09:14] LABS: Alanine Aminotransferase 42 U/L (7-40)
[2025-04-05 13:55] LABS: Chloride 103 mmol/L (98-107); Potassium 3.9 mmol/L (3.5-5.1); Sodium 139 mmol/L (136-145)
[2025-04-05 13:56] LABS: Anion Gap 9 (5-15); Carbon Dioxide 27 mmol/L (20-31)
[2025-04-05 13:57] LABS: Calcium 9.8 mg/dL (8.7-10.4)
[2025-04-05 14:01] LABS: BUN/Creatinine Ratio 11.8 (10.0-20.0); Blood Urea Nitrogen 11 mg/dL (9-23); Glucose 103 mg/dL (74-106)
== END 2025-04-05 17:00 | disposition home or self-care (01) ==
LOC: LAB 08:24
PROVIDERS: ATTEND Internal Medicine
DX: Z13.1 Encounter for screening for diabetes mellitus (principal)
CPT/HCPCS: 36415; 80048; 80053; 80061; 83036; 85025